=== PATIENT | female | born 1950 | race African-American/Black ===

== ENCOUNTER 2018-03-15 17:41 | Emergency (ER) | payer OTHER ==
[~2018-03-15] VITALS: Ht 160 cm; Wt 107.1 kg
[~2018-03-15 17:41] MED LIST: ASPIR 8181 M1 PO; BENADRYL25 MG PO; GLUCOTROL10 MG PO; HYZAAR 100-21 TABLET PO; LIPITOR80 MG PO; MOTRIN600 MG PO; TYLENOL ARTHRI650 MG PO; VERAPAMIL HCL240 MG PO
[2018-03-15 18:04] VITALS: BP 177/76
== END 2018-03-15 19:32 | disposition home or self-care (01) ==
LOC: EXP 17:41 → EME 17:41 → EXP 19:32
DX: S86.812A Strain of other muscle(s) and tendon(s) at lower leg level, left leg, initial encounter (principal); Y93.A1 Activity, exercise machines primarily for cardiorespiratory conditioning; Y92.39 Other specified sports and athletic area as the place of occurrence of the external cause
CPT/HCPCS: 73564; 99281; 99284